=== PATIENT | female | born 1955 | race Two or more races ===

== ENCOUNTER 2019-06-01 13:22 | Outpatient (CLI) | payer MEDICARE, MEDICAID ==
[~2019-06-01] VITALS: Ht 157.5 cm; Wt 75.7 kg
[2019-06-01 13:41] VITALS: BP 110/70
[2019-06-01] MEDS ORDERED: MOBIC15 MG ORAL (13:47)
[2019-06-01] MEDS ORDERED: LIPITOR20 MG ORAL (13:47)
[2019-06-01] MEDS ORDERED: ASPIRIN EC81 MG ORAL (13:47)
--- NOTE | 2019-06-01 16:00 | Consultation ---
DATE OF CONSULTATION: 06/01/2019 REFERRING PHYSICIAN: Dr. Mcbride. CHIEF COMPLAINT: Change in stool consistency, history of colonic polyps, epigastric abdominal pain. PAST MEDICAL HISTORY: 1. Depression. 2. GERD. 3. Hypercholesterolemia. 4. History of fibroids. 5. Arthritis. PAST SURGICAL HISTORY: Hysterectomy. MEDICATIONS: Please see medication reconciliation list. FAMILY HISTORY: Father had kidney stone. Mother had breast cancer. SOCIAL HISTORY: The patient denies any tobacco, alcohol, or drug abuse. ALLERGIES: No known allergies. REVIEW OF SYSTEMS: A 10-point review of systems was performed and positive for abdominal pain, GERD, and change in stool consistency . PHYSICAL EXAMINATION: VITAL SIGNS: Temperature 97.8, blood pressure 110/70, pulse is 84, respirations 20. HEENT: Normocephalic and atraumatic. Sclerae anicteric. NECK: Supple. No evidence of obvious lymphadenopathy. CARDIOVASCULAR: Regular rate and rhythm. Plus S1, S2. LUNGS: Clear to auscultation bilaterally. ABDOMEN: Positive bowel sounds. Soft. Minimal tenderness to palpation in the epigastric area. No rebound. No guarding. No peritoneal sign. EXTREMITIES: No cyanosis. No clubbing. No edema. ASSESSMENT AND PLAN: This is a 63-year-old female with epigastric abdominal pain, chronic GERD, needs endoscopy. Also, the patient needs colonoscopy. Last colonoscopy over 6 to 7 years ago. According to her, she had three polyps. So plan for endoscopy and colonoscopy. The patient is scheduled for next week. I want to thank, Dr. Blade Mcbride for this kind referral. Blade Collier M.D. DR: Paramjit JOB#: [id number] CC: Blade Mcbride M.D.
== END 2019-06-01 17:09 | disposition home or self-care (01) ==
LOC: PAN 13:22
DX: R10.13 Epigastric pain (principal); F32.9 Major depressive disorder, single episode, unspecified; K21.9 Gastro-esophageal reflux disease without esophagitis; E78.00 Pure hypercholesterolemia, unspecified; M19.90 Unspecified osteoarthritis, unspecified site; Z86.010 Personal history of colon polyps; Z90.710 Acquired absence of both cervix and uterus
CPT/HCPCS: G0463

== ENCOUNTER 2019-06-08 08:07 | Day surgery (SDC) | payer MEDICARE, MEDICAID ==
[~2019-06-08] VITALS: Ht 157.5 cm; Wt 75.3 kg
[2019-06-08] VITALS (7 sets, daily range): BP systolic 99–126; BP diastolic 66–80
[~2019-06-08 08:07] MED LIST: ASPIRIN EC81 MG ORAL; LIPITOR20 MG ORAL; LR 1000ml 1,000 ML IVLG SCH; MOBIC15 MG ORAL
[2019-06-08] MEDS ORDERED: ZOLOFT25 MG ORAL (09:19)
[2019-06-08] MEDS ORDERED: Lidocaine 1% MPF 10mg/ml 5ml ONE (10:00)
[2019-06-08] MEDS ORDERED: Propofol 200mg/20ml IV ONE (10:00)
[2019-06-08] MEDS ORDERED: LR 1000ml ONE (10:00)
[2019-06-08] MEDS ORDERED: LR 1000ml 1,000 ML IVLG SCH (10:04)
--- NOTE | 2019-06-08 10:05 | Pre-Procedure Note/Attestation ---
Pre-Procedure Note/Attestation Complete Prior to Procedure Planned Procedure: not applicable Procedure Narrative: esophagogastroduodenoscopy and colonoscopy Indications for Procedure Pre-Operative Diagnosis: screening colon, GERD Attestation I attest that I discussed the nature of the procedure; its benefits; risks and complications; and alternatives (and the risks and benefits of such alternatives ), prior to the procedure, with the patient (or the patient's legal food service representative). I attest that, if there was a reasonable possibility of needing a blood transfusion, the patient (or the patient's legal food service representative) was given the [facility] standardized written summary, pursuant to the [place] Blood Safety Act ([place] Health and Safety Code # 1645, as amended). I attest that I re-evaluated the patient just prior to the surgery and that there has been no change in the patient's H&P, except as documented below: Blade Collier MD Jun 08, 2019 10:05
--- NOTE | 2019-06-08 10:06 | Short Stay Surgery H&P ---
History of Present Illness History of Present Illness Chief Complaint see recent office note HPI Tamara Frausto is a 63 year old female who was admitted on for Gerd And Polyp Patient History Allergies: Coded Allergies: No Known Allergies (Unverified , 06/01/19) Medication History Scheduled Aspirin Ec* (Aspirin Ec*), 81 MG ORAL DAILY, (Reported) Atorvastatin Calcium* (Lipitor*), 20 MG ORAL BEDTIME, (Reported) Meloxicam* (Mobic*), Unknown Dose ORAL DAILY, (Reported) Sertraline Hcl* (Zoloft*), 25 MG ORAL DAILY, (Reported) Physical Exam Vital Signs Last Vital Signs Date Time Temp Pulse Resp B/P (MAP) Pulse Ox O2 Delivery O2 Flow Rate FiO2 06/08/19 09:15 Room Air 06/08/19 08:35 96.7 82 16 126/73 98 Plan Attestation Are the patient's medical conditions optimized for surgery? Blade Collier MD Jun 08, 2019 10:05
[2019-06-08] MEDS ORDERED: Midazolam 2mg/2ml Inj IVP PRN (10:15)
[2019-06-08] MEDS ORDERED: Atropine Inj 1mg/10ml Syr IV PRN (10:15)
[2019-06-08] MEDS ORDERED: fentaNYL 100 mcg/2 mL IV PRN (10:15)
[2019-06-08] MEDS ORDERED: DiphenhydrAMINE 50mg/ml Inj IVP PRN (10:15)
--- NOTE | 2019-06-08 10:30 | Anethesia Preoperative Eval ---
Anesthesia Pre-op PMH/ROS General Date of Evaluation: Jun 08, 2019 Time of Evaluation: 09:56 Anesthesiologist: anatoly ASA Score: ASA 3 Mallampati Score Class I : Soft palate, uvula, fauces, pillars visible Class II: Soft palate, uvula, fauces visible Class III: Soft palate, base of uvula visible Class IV: Only hard plate visible Mallampati Classification: Class II Surgeon: yumiko Diagnosis: gerd, colon polyps Surgical Procedure: egd/colonoscopy Anesthesia History: none Social History: current smoker Family History: no anesthesia problems Allergies: Coded Allergies: No Known Allergies (Unverified , 06/01/19) Medications: see eMAR Patient NPO?: Yes Past Medical History Cardiovascular: Reports: other - hypercholestrolemia Gastrointestinal/Genitourinary: Reports: GERD, other - c olon polyps Neurologic/Psychiatric: Reports: depression/anxiety PSxH Narrative: hysterectomy, Anesthesia Pre-op Phys. Exam Physician Exam Last Vital Signs Date Time Temp Pulse Resp B/P (MAP) Pulse Ox O2 Delivery O2 Flow Rate FiO2 06/08/19 09:15 Room Air 06/08/19 08:35 96.7 82 16 126/73 98 Constitutional: NAD Neurologic: CN 2-12 intact Cardiovascular: RRR Respiratory: CTA Gastrointestinal: S/NT/ND Airway Exam Mallampati Score: Class II MO: limited Neck: flexible TMD: 2fb ROM: limited Anesthesia Pre-op A/P Risk Assessment & Plan Assessment: asa3 Plan: mac Status Change Before Surgery: No Pre-Antibiotics Drug: Kati Gilliland MD Jun 08, 2019 10:30
--- NOTE | 2019-06-08 10:39 | Endoscopy Procedure Note ---
Endoscopy Procedure Note General Indication for Procedure: screening colon, GERD Procedures Performed: EGD, colonoscopy Operative Findings/Diagnosis: diverticulosis Specimen: yes Pt Tolerated Procedure Well: Yes Estimated Blood Loss: none Anesthesia Anesthesiologist: ney Anesthesia: MAC Inserted Devices Implant(s) used?: No Quality Quality of Bowel Preparation: Excellent Did scope reach the cecum?: Yes Was there any complications?: No GI Core Measures 50 yrs or older w/o bx or poly: No 10yrs. F/U recommended: Yes If not recommended, why?: Above average risk 18 years or older w/prev. colo: No Blade Collier MD Jun 08, 2019 10:39
--- NOTE | 2019-06-08 10:59 | Immediate Post-Op Evaluation ---
Immediate Post-Op Evalulation Immediate Post-Op Evalulation Procedure: egd/colonoscopy w/bx Date of Evaluation: Jun 08, 2019 Time of Evaluation: 10:56 IV Fluids: 425ml lr Blood Products: none Estimated Blood Loss: negligible Blood Pressure Systolic: 106 Blood Pressure Diastolic: 79 Pulse Rate: 80 Respiratory Rate: 18 O2 Sat by Pulse Oximetry: 100 Temperature (Fahrenheit): 97.2 Pain Score (1-10): 0 Nausea: No Vomiting: No Complications none Patient Status: awake, reacts, patent Hydration Status: adequate Drug: Kati Gilliland MD Jun 08, 2019 10:59
--- NOTE | 2019-06-08 11:00 | 48 Hour Post Anesthesia Eval ---
Post Anesthesia Evaluation Procedure: egd/colonoscopy w/bx Date of Evaluation: Jun 08, 2019 Time of Evaluation: 10:58 Blood Pressure Systolic: 109 0: 80 Pulse Rate: 87 Respiratory Rate: 18 Temperature (Fahrenheit): 97.2 O2 Sat by Pulse Oximetry: 100 Airway: patent Nausea: No Vomiting: No Pain Intensity: 0 Hydration Status: adequate Cardiopulmonary Status: stable Mental Status/LOC: patient returned to baseline Post-Anesthesia Complications: none Follow-up care needed: N/A Kati Mejia MD Jun 08, 2019 11:00
--- NOTE | 2019-06-08 15:15 | Procedure Note ---
DATE OF PROCEDURE: 06/08/2019 SURGEON: Blade Collier M.D. PROCEDURE: Upper endoscopy with biopsy and colonoscopy. ANESTHESIA: Per Dr. Ramirez. INSTRUMENT: Olympus adult flexible colonoscope and upper endoscope. INDICATION: Screening colonoscopy evaluation, abdominal pain. REASON FOR PROCEDURE: The procedure, risks, benefits, and possible consequences, including hemorrhage, aspiration, perforation and infection, and alternative treatments, were explained to the patient/legal guardian by Dr. Blade Collier and the patient/legal guardian understood and accepted these risks. PROCEDURE IN DETAIL: After informed consent was obtained and the patient was adequately sedated, Olympus upper endoscope was advanced from mouth into the second portion of the duodenum and retroflexion was performed in the stomach. The patient has diffuse gastritis. Random biopsy from antrum and body was obtained to rule out H. pylori infection. Otherwise, the rest of upper endoscopic examination was grossly within normal limits. At this time, the upper endoscope was retrieved. The patient was turned over for colonoscopy. First, rectal exam was performed, which was positive for internal hemorrhoids. Then, the scope was advanced from rectum into the cecum, then subsequently to terminal ileum. Quality of prep was very good. The patient had scattered diverticulosis throughout the colon in the left colon. No obvious mass, polyp, or any pathology was seen. Retroflexion of rectum showed evidence of medium-sized nonbleeding internal hemorrhoids. SUMMARY OF FINDINGS: 1. Gastritis, status post biopsy. 2. Diverticulosis. 3. Internal hemorrhoids. RECOMMENDATIONS: Follow up biopsy results and treat accordingly. I want to thank, Dr. Blade Mcbride, for this kind referral. Blade Collier M.D. DR: JOSIANE JOB#: [id number] CC: Blade Mcbride M.D.
== END 2019-06-08 12:10 | disposition home or self-care (01) ==
LOC: GAS 08:07
DX: Z12.11 Encounter for screening for malignant neoplasm of colon (principal); K57.90 Diverticulosis of intestine, part unspecified, without perforation or abscess without bleeding; K64.8 Other hemorrhoids; K29.70 Gastritis, unspecified, without bleeding; B96.81 Helicobacter pylori [H. pylori] as the cause of diseases classified elsewhere; Z79.82 Long term (current) use of aspirin; K21.9 Gastro-esophageal reflux disease without esophagitis; F17.200 Nicotine dependence, unspecified, uncomplicated; E78.00 Pure hypercholesterolemia, unspecified; Z86.010 Personal history of colon polyps; Z90.710 Acquired absence of both cervix and uterus; F32.9 Major depressive disorder, single episode, unspecified; F41.9 Anxiety disorder, unspecified
CPT/HCPCS: 43239; 93005; G0121; J2704; J7120; 94003; 94150

== ENCOUNTER 2019-08-17 12:18 | Outpatient (CLI) | payer MEDICARE, MEDICAID ==
[~2019-08-17 12:18] MED LIST changes: -LR 1000ml 1,000 ML IVLG SCH; +ZOLOFT25 MG ORAL
--- NOTE | 2019-08-17 14:25 | General Progress Note ---
Assessment/Plan Assessment/Plan: SUMMARY OF FINDINGS: 1. Gastritis, status post biopsy. 2. Diverticulosis. 3. Internal hemorrhoids. hp positive gastritis quadro therapy RTC 3 months for breath test Subjective ROS Limited/Unobtainable: Yes Allergies: Coded Allergies: No Known Allergies (Unverified , 06/01/19) Objective General Appearance: alert EENT: normal ENT inspection Neck: supple Cardiovascular: normal rate Respiratory/Chest: decreased breath sounds Abdomen: normal bowel sounds, non tender, soft Extremities: non-tender Blade Collier MD August 17, 2019 14:25
== END 2019-08-17 14:18 | disposition home or self-care (01) ==
LOC: PAN 12:18
DX: K29.70 Gastritis, unspecified, without bleeding (principal); K57.90 Diverticulosis of intestine, part unspecified, without perforation or abscess without bleeding; K64.8 Other hemorrhoids; B96.81 Helicobacter pylori [H. pylori] as the cause of diseases classified elsewhere
CPT/HCPCS: 99212